=== PATIENT | female | born 1975 | race African-American/Black ===

== ENCOUNTER 2016-10-09 19:03 | Emergency (ER) | payer OTHER ==
[2016-10-09] MEDS ORDERED: Ibuprofen 800 MG TAB ONE (19:45)
[2016-10-09] MEDS ORDERED: Dexamethasone 4 MG TAB ONE (19:45)
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
== END 2016-10-09 19:52 | disposition home or self-care (01) ==
LOC: MADERS 19:03
DX: M25.511 Pain in right shoulder (principal); F17.210 Nicotine dependence, cigarettes, uncomplicated; W22.8XXA Striking against or struck by other objects, initial encounter
CPT/HCPCS: 99283; J8540

== ENCOUNTER 2017-07-10 07:51 | Emergency (ER) | payer OTHER ==
--- NOTE | 2017-07-10 09:18 | RAD ---
FOUR VIEWS LEFT KNEE: Date: 07-10-17 History: Joint pain. Loud popping in left knee since last night after doing sit ups. FINDINGS: There is no evidence of fracture, dislocation, or other osseous abnormality involving the left knee. IMPRESSION: No acute osseous abnormality. POS: JONATHAN
== END 2017-07-10 09:30 | disposition home or self-care (01) ==
LOC: MADERS 07:51
DX: M25.562 Pain in left knee (principal); G89.29 Other chronic pain; F17.210 Nicotine dependence, cigarettes, uncomplicated

== ENCOUNTER 2018-11-23 11:05 | Emergency (ER) | payer OTHER | END 2018-11-23 11:40 | disposition home or self-care (01) | LOC: MADERS 11:05 | DX: B30.9 Viral conjunctivitis, unspecified (principal); F17.210 Nicotine dependence, cigarettes, uncomplicated | CPT/HCPCS: 99283 ==